=== PATIENT | male | born 1985 | race Two or more races ===

== ENCOUNTER 2016-08-17 09:22 | Emergency (ER) | payer OTHER ==
[~2016-08-17] VITALS: Ht 165.1 cm; Wt 65.8 kg
[2016-08-17] MEDS ORDERED: CEFAZOLIN 1GM IVPB FOR OMNI 50 ML IV ONE (09:45)
[2016-08-17] MEDS ORDERED: DIPHTH,PERTUSS(ACELL),TET TOX 0.5 ML DISP.SYRIN. VAX IM ONE (09:45)
[2016-08-17] MEDS ORDERED: MORPHINE SULFATE 10 MG/ML VIAL. IV ONE (09:45)
--- NOTE | 2016-08-17 09:50 | PHYS DOC ---
Past Medical History Past Medical History: No Pertinent History Past Surgical History: No Surgical History Alcohol Use: None Drug Use: None Adult General Chief Complaint Chief Complaint: LACERATION/AVULSION [facility] HPI Patient is a 31 year old right-hand dominant male who presents the emergency Department today with complaint of a laceration to his left hand while he was sharpening a knife at work. 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 He does not remember his last tetanus shot. He does not have any additional injuries or concerns. Last by mouth intake was 5 AM this morning. Patient does complain of numbness to his thumb since the laceration. Review of Systems Review of Systems Constitutional: Denies fever or chills [] Eyes: Denies change in visual acuity, redness, or eye pain [] HENT: Denies nasal congestion or sore throat [] Respiratory: Denies cough or shortness of breath [] Cardiovascular: No additional information not addressed in HPI [] GI: Denies abdominal pain, nausea, vomiting, bloody stools or diarrhea [] : Denies dysuria or hematuria [] Musculoskeletal: Denies back pain or joint pain [] Integument: Denies rash or skin lesions [] Neurologic: Denies headache, focal weakness or sensory changes [] Endocrine: Denies polyuria or polydipsia [] Current Medications Current Medications Current Medications Medications (Trade) Dose Ordered Sig/Panfilo Start Time Stop Time Status Last Admin Dose Admin Cefazolin Sodium (Ancef 1gm Ivpb For Omni) 50 ml @ 100 mls/hr 1X ONCE 08/17/16 09:45 08/17/16 10:14 DC 08/17/16 10:04 100 MLS/HR Diphtheria/ Tetanus/Acell Pertussis 0.5 ml 0.5 ml ONCE ONCE 08/17/16 09:45 08/17/16 09:50 DC 08/17/16 10:05 0.5 ML Lidocaine/Sodium Bicarbonate (Buffered Lidocaine 1%) 20 ml 1X ONCE 08/17/16 10:30 08/17/16 10:31 DC 08/17/16 10:30 20 ML Morphine Sulfate 5 mg 1X ONCE 08/17/16 09:45 08/17/16 09:50 DC 08/17/16 10:04 5 MG Allergies Allergies Allergies Coded Allergies Type Severity Reaction Last Updated Verified No Known Drug Allergies 08/17/16 No Physical Exam Physical Exam Constitutional: Well developed, well nourished, mild distress, non-toxic appearance. HENT: Normocephalic, atraumatic, bilateral external ears normal, oropharynx moist, no oral exudates, nose normal. [] Eyes: PERRLA, EOMI, conjunctiva normal, no discharge. [] Neck: Normal range of motion, no tenderness, supple, no stridor. [] Cardiovascular:Heart rate regular rhythm, no murmur [] Lungs & Thorax: Bilateral breath sounds clear to auscultation [] Abdomen: Bowel sounds normal, soft, no tenderness, no masses, no pulsatile masses. [] Skin: Warm, dry, no erythema, no rash. [] Back: No tenderness, no CVA tenderness. [] Extremities: Left abdomen approximately 4 cm laceration at the base of the first metacarpal. This does extend into the soft tissues with visible tendon is lacerated. Patient's thumb and index finger neurovascularly intact. Patient is able to flex and extend his index finger at both the PIPJ and DIPJ. Patient is able to flex his thumb at the IPJ. He is not able to extend his thumb or circumduct his thumb. Both index finger and thumb are vascularly intact with capillary refill less than 2 seconds. Patient states that the dorsum of his left thumb has decreased sensation. He cannot discriminate between 1 and 2 point touch. Neurologic: Alert and oriented X 3, normal motor function, normal sensory function, no focal deficits noted. [] Psychologic: Affect normal, judgement normal, mood normal. [] Current Patient Data Vital Signs Vital Signs Date Time Temp Pulse Resp B/P Pulse Ox O2 Delivery O2 Flow Rate FiO2 08/17/16 10:30 62 16 129/84 98 Room Air 08/17/16 09:25 98.3 98.3 Lab Values Laboratory Tests Test 08/17/16 09:58 White Blood Count 9.0x10^3/uL (4.0-11.0) Red Blood Count 5.20x10^6/uL (4.30-5.70) Hemoglobin 14.2g/dL (13.0-17.5) Hematocrit 42.6% (39.0-53.0) Mean Corpuscular Volume 82fL (79-100) Mean Corpuscular Hemoglobin 27pg (25-35) Mean Corpuscular Hemoglobin Concent 33g/dL (31-37) Red Cell Distribution Width 13.5% (11.5-14.5) Platelet Count 264x10^3/uL (140-400) Neutrophils (%) (Auto) 72% (31-73) Lymphocytes (%) (Auto) 18% (24-48) L Monocytes (%) (Auto) 8% (0-9) Eosinophils (%) (Auto) 1% (0-3) Basophils (%) (Auto) 1% (0-3) Neutrophils # (Auto) 6.5x10^3uL (1.8-7.7) Lymphocytes # (Auto) 1.7x10^3/uL (1.0-4.8) Monocytes # (Auto) 0.7x10^3/uL (0.0-1.1) Eosinophils # (Auto) 0.1x10^3/uL (0.0-0.7) Basophils # (Auto) 0.0x10^3/uL (0.0-0.2) Sodium Level 142mmol/L (136-145) Potassium Level 4.0mmol/L (3.5-5.1) Chloride Level 103mmol/L (98-107) Carbon Dioxide Level 28mmol/L (21-32) Anion Gap 11 (6-14) Blood Urea Nitrogen 16mg/dL (8-26) Creatinine 0.9mg/dL (0.7-1.3) Estimated GFR (Cockcroft-Gault) 98.4 BUN/Creatinine Ratio 18 (6-20) Glucose Level 99mg/dL (70-99) Calcium Level 9.1mg/dL (8.5-10.1) Total Bilirubin 0.4mg/dL (0.2-1.0) Aspartate Amino Transferase (AST) 40U/L (15-37) H Alanine Aminotransferase (ALT) 72U/L (16-63) H Alkaline Phosphatase 78U/L (46-116) Total Protein 7.8g/dL (6.4-8.2) Albumin 4.2g/dL (3.4-5.0) Albumin/Globulin Ratio 1.2 (1.0-1.7) Laboratory Tests 08/17/16 09:58 Laboratory Tests 08/17/16 09:58 EKG EKG [] Radiology/Procedures Radiology/Procedures Procedure note: 4 cm laceration to the dorsum of patient's left hand overlying the first metacarpal was anesthetized with buffered 1% lidocaine. Wound was explored for foreign bodies. No foreign bodies were found. Tendon laceration was noted. Suspect to be the extensor pollicis. Wound margins were approximated utilizing 4-0 Prolene in a simple interrupted fashion of a single-layer closure for total of 8 stitches. Thumb spica splint was applied by nursing staff. Patient was reevaluated by me post application to find him with capillary refill less than 2 seconds. Patient does complain of numbness to the thumb which is not new. Course & Med Decision Making Course & Med Decision Making Phone call made to Dr. Cervantes, orthopedic surgeon workers compensation analyst. Dr Cervantes requests gross closure of the laceration, splinting, Keflex antibiotic, analgesia and follow- up in the office tomorrow. Dragon Disclaimer Dragon Disclaimer This electronic medical record was generated, in whole or in part, using a voice recognition dictation system. Departure Departure Impression: Primary Impression: Laceration Additional Impression: Tendon laceration Disposition: 01 HOME, SELF-CARE Condition: IMPROVED Referrals: LAUREN CERVANTES MD Patient Instructions: Diphtheria Toxoid; Tetanus Toxoid Adsorbed, DT, Td, Laceration Care, Adult, [id number], Splint Care, [id number], Tendon Injury Additional Instructions: 1. Take the medication as prescribed. 2. Review the discharge instructions for self-care and reasons to return to the emergency department. 3. Keep the splint on until you see the orthopedic doctor tomorrow. Call the office first thing in the morning for the time to be seen tomorrow. Scripts Cephalexin 500 Mg Capsule1 Cap PO TID #30 CAP Prov:PATRICA VIERA 08/17/16 Hydrocodone/Apap 5-325 ([place] 5-325 Tablet)1 Each Tablet1 Tab PO PRN Q6HRS PRN PAIN #15 TAB Prov:PATRICA VIERA 08/17/16 Problem Qualifiers PATRICA VIERA Aug 17, 2016 09:50
[2016-08-17 10:07] LABS: BASO % 1 % (0-3); EOS % 1 % (0-3); HEMATOCRIT 42.6 % (39.0-53.0); HEMOGLOBIN 14.2 g/dL (13.0-17.5); LYMPH # 1.7 x10^3/uL (1.0-4.8); LYMPH % 18 % (24-48); MEAN CORPUSCULAR HEMOGLOBIN 27 pg (25-35); MEAN CORPUSCULAR HGB CONC 33 g/dL (31-37); MEAN CORPUSCULAR VOLUME 82 fL (79-100); MONO % 8 % (0-9); NEUT % 72 % (31-73); PLATELET COUNT 264 x10^3/uL (140-400); RED CELL DISTRIBUTION WIDTH 13.5 % (11.5-14.5)
[2016-08-17 10:15] LABS: CALCIUM 9.1 mg/dL (8.5-10.1); CREATININE 0.9 mg/dL (0.7-1.3); GFR 98.4
[2016-08-17 10:22] LABS: ALBUMIN 4.2 g/dL (3.4-5.0); ALBUMIN/GLOBULIN RATIO 1.2 (1.0-1.7); TOTAL BILIRUBIN 0.4 mg/dL (0.2-1.0); TOTAL PROTEIN 7.8 g/dL (6.4-8.2)
[2016-08-17 10:30] VITALS: BP 129/84
[2016-08-17] MEDS ORDERED: LIDOCAINE 1% / SOD BICARB 8.4% 20 ML VIAL. IJ ONE (10:30)
[2016-08-17] MEDS ORDERED: HYDR-971 PO (10:57)
[2016-08-17] MEDS ORDERED: CEPH500C PO (10:57)
[2016-08-19] MEDS ORDERED: HYDR-2666 PO (14:36)
== END 2016-08-17 11:56 | disposition home or self-care (01) ==
LOC: ER 09:22
DX: S66.822A Laceration of other specified muscles, fascia and tendons at wrist and hand level, left hand, initial encounter (principal); W26.0XXA Contact with knife, initial encounter; Y93.89 Activity, other specified; Y92.89 Other specified places as the place of occurrence of the external cause; Y99.8 Other external cause status
CPT/HCPCS: 12002; 36415; 80053; 85027; 90471; 90715; 96365; 96375; 99285; J0690; J2270

== ENCOUNTER 2016-08-19 10:54 | Day surgery (SDC) | payer OTHER ==
[~2016-08-19] VITALS: Ht 165.1 cm; Wt 69.5 kg
[~2016-08-19 10:54] MED LIST: BUPIVACAINE-EPI 0.25%-1:200000 50 ML VIAL. ONE; BUPIVACAINE-EPI 0.25%-1:200000 MPF 30 ML VIAL. ONE; CEFAZOLIN 1GM IVPB FOR OMNI 50 ML IV PRN; CEPH500C PO; FENTANYL PF 100 MCG/2 ML VIAL. IV PRN; HYDR-971 PO; HYDROMORPHONE 2 MG/ML VIAL. IV PRN; IV RINGERS,LACTATED 1000ML 1,000 ML IV SCH; LIDOCAINE 1% 1 ML SYRINGE. ID PRN; MORPHINE SULFATE 2 MG/ML DISP.SYRIN. IV PRN; ONDANSETRON PF 4 MG/2 ML VIAL. IV PRN; PROCHLORPERAZINE 10 MG/2 ML VIAL. IV PRN
[2016-08-19] MEDS ORDERED: CEFAZOLIN 1GM IVPB FOR OMNI 50 ML IV ONE (11:19)
[2016-08-19] MEDS ORDERED: BUPIVACAINE 0.25% 50 ML VIAL. ONE (11:34)
[2016-08-19] MEDS ORDERED: SEVOFLURANE 61 TO 120 MINUTES. IH ONE (11:52)
[2016-08-19] MEDS ORDERED: ONDANSETRON PF 4 MG/2 ML VIAL. ONE (11:53)
[2016-08-19] MEDS ORDERED: LIDOCAINE 2% 100 MG/5 ML DISP.SYRIN. ONE (11:53)
[2016-08-19] MEDS ORDERED: MIDAZOLAM HCL 2 MG/2 ML VIAL. ONE (11:53)
[2016-08-19] MEDS ORDERED: FENTANYL PF 100 MCG/2 ML VIAL. ONE ×2 (11:53→13:32)
[2016-08-19] MEDS ORDERED: PROPOFOL 20 ML IV ONE (11:53)
[2016-08-19] MEDS ORDERED: DEXAMETHASONE SOD PHOS 20 MG/5 ML VIAL. ONE (11:53)
[2016-08-19] MEDS ORDERED: GLYCOPYRROLATE 1 MG/5 ML VIAL. ONE (12:49)
[2016-08-19] MEDS ORDERED: HYDR-2666 PO (14:36)
[2016-08-19] MEDS ORDERED: HYDROCODONE/APAP 5/325MG TABLET. PO PRN (15:00)
[2016-08-19 15:40] VITALS: BP 113/63
--- NOTE | 2016-08-25 18:30 | PDOC1 ---
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 He was sharpening knives when his hand slipped, causing a lengthwise cut across the top of his hand. He went to [facility] where [address] and he was given hydrocodone and Cephalexin three times daily Past Surgical History Past Surgical History none Family History Family History nonpertinent Social History Smoke: No ALCOHOL: none Current Medications Current Medications Current Medications Ondansetron HCl (Zofran) 4 mg PRN Q6HRS PRN IV Nausea; Start 08/19/16 at 07:00 ; Stop 08/19/16 at 16:02; Status DC Fentanyl Citrate (Fentanyl 2ml Vial) 25 mcg PRN Q5MIN PRN IV MILD PAIN; Start 08/19/16 at 07:00; Stop 08/19/16 at 16:02; Status DC Fentanyl Citrate (Fentanyl 2ml Vial) 50 mcg PRN Q5MIN PRN IV MODERATE PAIN; Start 08/19/16 at 07:00; Stop 08/19/16 at 16:02; Status DC Morphine Sulfate 1 mg 1 mg PRN Q10MIN PRN IV SEVERE PAIN; Start 08/19/16 at 07: 00; Stop 08/19/16 at 16:02; Status DC Lactated Ringer's (Iv Lactated Ringers) 1,000 ml @ 0 mls/hr Q0M IV ; Start at 07:00; Stop 08/19/16 at 16:02; Status DC Lidocaine HCl 2 ml 1X PRN PRN ID IV START; Start 08/19/16 at 07:00; Stop at 16:02; Status DC Hydromorphone HCl (Dilaudid) 0.5 mg PRN Q10MIN PRN IV SEVERE PAIN, Second choice; Start 08/19/16 at 07:00; Stop 08/19/16 at 16:02; Status DC Prochlorperazine Edisylate 5 mg 5 mg PACU PRN PRN IV NAUSEA; Start 08/19/16 at 07:00; Stop 08/19/16 at 16:02; Status DC Cefazolin Sodium (Ancef 1gm Ivpb For Omni) 50 ml @ 100 mls/hr 1X PREOP PRN IV PRIOR TO PROCEDURE Last administered on 08/19/16 12:23; Start 08/19/16 at 06:00 ; Stop 08/19/16 at 16:02; Status DC Bupivacaine HCl/ Epinephrine Bitart (Marcaine-Epi 0.25%-1:[id number]) 50 ml STK-MED ONCE .ROUTE ; Start 08/19/16 at 10:21; Stop 08/19/16 at 10:22; Status DC Bupivacaine HCl/ Epinephrine Bitart 30 ml 30 ml STK-MED ONCE .ROUTE Last administered on 08/19/16 12:44; Start 08/19/16 at 10:21; Stop 08/19/16 at 10:22 ; Status DC Cefazolin Sodium (Ancef 1gm Ivpb For Omni) 50 ml @ As Directed STK-MED ONCE IV ; Start 08/19/16 at 11:19; Stop 08/19/16 at 11:20; Status DC Bupivacaine HCl (Marcaine 0.25%) 50 ml STK-MED ONCE .ROUTE ; Start 08/19/16 at 11:34; Stop 08/19/16 at 11:35; Status DC Sevoflurane (Ultane) 60 ml STK-MED ONCE IH ; Start 08/19/16 at 11:52; Stop 08/19 at 11:53; Status DC Midazolam HCl (Versed) 2 mg STK-MED ONCE .ROUTE ; Start 08/19/16 at 11:53; Stop 08/19/16 at 11:54; Status DC Fentanyl Citrate 100 mcg 100 mcg STK-MED ONCE .ROUTE ; Start 08/19/16 at 11:53; Stop 08/19/16 at 11:54; Status DC Propofol (Diprivan) 20 ml @ As Directed STK-MED ONCE IV ; Start 08/19/16 at 11: 53; Stop 08/19/16 at 11:54; Status DC Lidocaine HCl 100 mg STK-MED ONCE .ROUTE ; Start 08/19/16 at 11:53; Stop at 11:54; Status DC Dexamethasone Sodium Phosphate (Decadron) 20 mg STK-MED ONCE .ROUTE ; Start at 11:53; Stop 08/19/16 at 11:54; Status DC Ondansetron HCl (Zofran) 4 mg STK-MED ONCE .ROUTE ; Start 08/19/16 at 11:53; Stop 08/19/16 at 11:54; Status DC Glycopyrrolate (Robinul) 1 mg STK-MED ONCE .ROUTE ; Start 08/19/16 at 12:49; Stop 08/19/16 at 12:50; Status DC Fentanyl Citrate (Fentanyl 2ml Vial) 100 mcg STK-MED ONCE .ROUTE ; Start at 13:32; Stop 08/19/16 at 13:33; Status DC Acetaminophen/ Hydrocodone Bitart (Lortab 5/325) 1 tab 1X PACU PRN PO PAIN Last administered on 08/19/16t 15:10; Start 08/19/16 at 15:00; Stop 08/19/16 at 16:02; Status DC Active Scripts Active Hydrocodone-Apap 5-325 (Hydrocodone Bit/Acetaminophen) 1 Each Tablet 1 Tab PO Q4HRS PRN Cephalexin 500 Mg Capsule 1 Cap PO TID [place] 5-325 Tablet (Acetaminophen/Hydrocodone Bitart) 1 Each Tablet 1 Tab PO PRN Q6HRS PRN Allergies Allergies: Coded Allergies: pork derived (porcine) (Verified Allergy, Intermediate, Rash, 08/19/16) developes sores on skin ROS General: No: Chills, Night Sweats PSYCHOLOGICAL ROS: YES: Anxiety (regarding the injury) Physical Exam General: Alert, Oriented X3, Cooperative, No acute distress HEENT: PERRLA Lungs: Normal air movement Heart: RRR Abdomen: Soft Extremities: Other ( There is an oblique laceration across the dorsum of the left hand, with suture repair. This is primarily over the area of the thumb index webspace. He has decreased light touch sensation along the radial border of the index finger and the ulnar border of the thumb. The opposite sides of each of those digits, the ulnar border of the index and the radial border of the thumb seem to have intact sensation. The remaining three digits are normal regarding sensation and motion. He has decreased thumb extension, and decreased thumb adduction. Flexion of the thumb seems normal. The index finger seems to have intact extension, perhaps a questionable partial extensor tendon injury. There is a slight flexion deformity of the distal interphalangeal joint but he seems to have that bilaterally and his tendon did not seem particularly painful or weak on the index finger. 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 Findings Bones: No fracture or dislocation is present. Joints: The joint spaces are normal. Soft tissue: No foreign body is demonstrated Impression: Normal. Dictated and Signed Using Voice Recognition Software Lauren Cervantes MD VTE Prophylaxis Ordered VTE Prophylaxis Devices: No VTE Pharmacological Prophylaxi: No Assessment/Plan Assessment/Plan Repair of the extensor tendons of the thumb. There are probably at least two tendons lacerated, and will be easier to tell intraoperatively. He may have digital nerve injury of the index finger in the thumb and those will be repaired as well if possible, depending on the quality of the nerve tissue. I spoke to him about the potential risks such as further problems with sensation or function, although the goal will be to get back to normal function. The sensation would be the most likely thing to have persistent difficulties. I would keep him in a splint for at least two weeks postoperatively, and not allow him to work during that time. At two weeks postop. We could remove him from the postop splint, convert to a removable splint, and allow him to work. He stated understanding of the risks, and benefits of surgery. Another risk would be infection which we discussed. LAUREN CERVANTES MD Aug 25, 2016 18:30
--- NOTE | 2016-08-25 18:45 | PDOC4 ---
Operative Note Operative Note Date of Procedure: 08/19/2016 Pre-Op Diagnosis: 1. Extensor tendon injury left thumb. 2. Digital nerve injury. Post-Op Diagnosis: 1. Extensor pollicis longus laceration left thumb. 2. Injury to the combined nerve at the radial nerve sensory branch, which becomes the digital nerve to the left thumb and index finger Procedure: 1. Repair extensor tendon, hand, primary (extensor pollicis longus), Zone 2. Suture of digital nerve, left hand Surgeon(s): Lauren Cervantes MD Anesthesia: General EBL: 10 mL Specimens Obtained: none Complications: none Drains: none Indications for Procedure: The patient is a 31 year old with left hand knife injury which occurred at work. He has loss of extension of the thumb, and loss of sensation of the thumb and index finger. I recommended exploration, tendon repair, and digital nerve repair. We talked about potential risks of rerupture of the tendon, and that in the best of circumstances the sensation function would take until February for sensation to return, and that he may get only partial sensation or no sensation returned. We talked about the risks of surgery such as infection, stiffness, scarring, nerve pain, or other potential surgical or anesthetic complications. The patient and I discussed the risks, benefits and alternatives of surgery. All of his questions were answered and he desired to proceed. Written consent was obtained. Procedure in Detail: The patient was identified in the preoperative holding area. The correct left hand was marked by me. The patient was taken to the operating room where general anesthetic was used. The patient was positioned supine on the operating table. A tourniquet was placed on the upper arm. Preoperative antibiotics were given intravenously. A timeout procedure was performed. The limb was prepared with sterile solution, and sterile drapes were applied. An Esmarch bandage was used to exsanguinate the limb and the tourniquet was inflated to 275 mmHg. The entire operation was done with loupe magnification at 3.5x power. The sutures from his laceration were removed. The laceration was converted to an incision extending proximally. The thumb was explored. The extensor pollicis longus was lacerated in zone six. The distal portion was found without difficulty. Proximal exploration was required for several minutes to locate the proximal end of the extensor pollicis longus which had retracted beyond the level of the wrist joint. This was located and carefully brought into the incision. Copious irrigation was used with saline. The extensor pollicis longus tendon was now repaired using a modified Booker suture pattern and 4-0 Prolene suture. Additional [id number] sutures were used for additional tendon repair stability. The tendon was able to be repaired with minimal shortening. Next the digital nerve exploration was performed. This appeared to be a combined injury to the branch of the superficial radial nerve as it becomes the digital nerve to the radial border of the index finger and to the ulnar border of the thumb. It was a single nerve repair. This was carefully done with 6-0 Prolene suture. Loupe magnification was used for a careful end-to-end nerve repair using epineural sutures. Bipolar electrocautery was used carefully for hemostasis throughout the procedure, as needed with care not to injure the digital nerves. Gentle irrigation was used a final time. The incision was repaired with a single 2-0 Vicryl suture in the subcutaneous cutaneous tissues and then multiple 4-0 Prolene sutures in the skin. Sterile dressing and a splint were applied. The thumb was held extended in the splint. The tourniquet was released. Needle and sponge counts were correct. There were no apparent complications. LAUREN CERVANTES MD Aug 25, 2016 18:45
--- NOTE | 2016-08-25 18:47 | PDOC ---
BRIEF OPERATIVE NOTE Date: Aug 19, 2016 Pre-Op Diagnosis 1. Extensor tendon injury left thumb. 2. Digital nerve injury. Post-Op Diagnosis 1. Extensor pollicis longus laceration left thumb. 2. Injury to the combined nerve at the radial nerve sensory branch, which becomes the digital nerve to the left thumb and index finger Procedure Performed 1. Repair extensor tendon, hand, primary (extensor pollicis longus), Zone 2. Suture of digital nerve, left hand Surgeon popeye Anesthesia Type: General Blood Loss minimal Specimens Obtained none Complications none LAUREN LAWRENCE MD Aug 25, 2016 18:47
== END 2016-08-19 15:48 | disposition home or self-care (01) ==
LOC: SURG 10:54
PROVIDERS: ATTEND Orthopaedic Surgery
DX: S66.222A Laceration of extensor muscle, fascia and tendon of left thumb at wrist and hand level, initial encounter (principal); S54.22XA Injury of radial nerve at forearm level, left arm, initial encounter; X58.XXXA Exposure to other specified factors, initial encounter; Y93.9 Activity, unspecified; Y92.9 Unspecified place or not applicable; Y99.9 Unspecified external cause status; Z87.39 Personal history of other diseases of the musculoskeletal system and connective tissue
CPT/HCPCS: 26410; 64834; A4215; C1769; J0690; J1100; J2250; J2405; J2704; J3010; J3490